=== PATIENT | female | born 1995 | race Two or more races ===

== ENCOUNTER 2018-03-31 02:28 | Emergency (ER) | payer OTHER ==
[~2018-03-31] VITALS: Ht 167.6 cm; Wt 60.0 kg
[2018-03-31] MEDS ORDERED: ZIPRASIDONE 20 MG INJ IM ONE ×2 (04:24→04:30)
[2018-03-31] MEDS ORDERED: SODIUM CHLORIDE 0.9% 1,000ML IVBOLUS ONE (07:30)
[2018-03-31 08:18] VITALS: BP 110/64
== END 2018-03-31 08:43 | disposition home or self-care (01) ==
LOC: ED 04:09
DX: F10.129 Alcohol abuse with intoxication, unspecified (principal); F41.9 Anxiety disorder, unspecified
CPT/HCPCS: 36415; 80307; 96360; 96372; 99284; J3486; J7030; 96361